=== PATIENT | male | born 1960 | race African-American/Black ===

== ENCOUNTER 2018-09-13 09:54 | Observation (INO) | payer OTHER ==
[~2018-09-13] VITALS: Ht 180.3 cm; Wt 58.9 kg
[2018-09-13] VITALS (20 sets, daily range): BP systolic 97–151; BP diastolic 49–87; PULSE 60–100; RESP 10–23; Ht 180.3 cm; Wt 58.9 kg
[~2018-09-13 09:54] MED LIST: CIPROFLOXACIN 400 MG in D5W 200 ML IVPB SCH
[2018-09-13] MEDS ORDERED: TAMS0.4C2 PO (10:25)
[2018-09-13] MEDS ORDERED: FINA5TAB4 PO (10:25)
[2018-09-13] MEDS ORDERED: GABA-526 PO (10:26)
[2018-09-13] MEDS ORDERED: MIDAZOLAM 1 MG/ML 2 ML INJ ONE (12:51)
[2018-09-13] MEDS ORDERED: PROPOFOL 20 ML ONE (12:51)
[2018-09-13] MEDS ORDERED: FENTAnyl 50 MCG/ML VIAL ONE (12:51)
--- NOTE | 2018-09-13 13:07 | HPN ---
Date/Time of Note Date/Time of Note DATE: 09/13/18 TIME: 13:07 Interval H&P Admission Note Pt. seen H&P reviewed: No system changes WENDIE SARAVIA Sep 13, 2018 13:07
--- NOTE | 2018-09-13 13:12 | PREAC ---
Date/Time of Note Date/Time of Note DATE: 09/13/18 TIME: 13:08 Anesthesia Eval and Record Evaluation Time Pre-Procedure Interview DATE: 09/13/18 TIME: 13:08 Age 58 Sex male NPO: 8 hrs Preoperative diagnosis urinary retention Planned procedure cysto;TURP Past Medical History Past Medical History: Includes (BPH, chronic back pain) Surgery & Anesthesia Issues No known issue Meds Anticoagulation: No Beta Ugo within 24 hr: No Reason Beta Ugo not given: Pt. not on B-Ugo Reported Medications Gabapentin* (Gabapentin*) 600 Mg Tablet, 600 MG PO TID, #90 TAB 09/13/18 Finasteride* (Finasteride*) 5 Mg Tablet, 5 MG PO DAILY, TAB 09/13/18 Tamsulosin Hcl* (Tamsulosin Hcl*) 0.4 Mg Cap.er.24h, 0.4 MG PO HS, CAP 09/13/18 Current Medications Ciprofloxacin/ Dextrose 200 ml @ 200 mls/hr PREOP IVPB ; Start 09/13/18 at 06:00; Stop 09/13/18 at 19:00 Influenza Virus Vaccine Quadrival (Fluzone) 0.5 ml ONCE ONCE IM* ; Start 09/15/18 at 13:00; Stop 09/15/18 at 13:01 Meds reviewed: Yes Allergies Coded Allergies: No Known Allergy (Unverified , 09/13/18) Allergies Reviewed: Yes Labs/Studies Labs Reviewed: Reviewed by anesthesiologist test: N/A Studies: ECG (nsr w/ SA), CXR (no active disease) Pre-procedure Exam Last vitals Vital Signs Date Temp Pulse Resp B/P (MAP) Pulse Ox O2 O2 Flow FiO2 Time Delivery Rate 09/13/18 97.5 60 16 120/58 100 10:46 (78) Airway: Adequate mouth opening, Adequate thyromental dist Mallampati: Mallampati II Teeth: Normal Lung: Normal Heart: Normal ASA Physical Status ASA physical status: 2 Emergency: None Planned Anesthetic General/MAC: ETT (to the discretion of the anesthesiologist), LMA Pre-operative Attestations Prior to commencing anesthesia and surgery, the patient was re-evaluated, there was verification of: *The patient's identity *The results of appropriate recent lab work and preoperative vital signs *The above evaluation not changing prior to induction *Anesthetic plan, risk benefits, alternative and complications discussed with patient/family; questions answered; patient/family understands, accepts and wishes to proceed. JAMEY SHIRLEY Sep 13, 2018 13:12
[2018-09-13] MEDS ORDERED: KETOROLAC 30 MG INJ ONE (13:48)
[2018-09-13] MEDS ORDERED: DEXAMETHASONE 4 MG/ML 5 ML INJ ONE (13:48)
[2018-09-13] MEDS ORDERED: ONDANSETRON 4 MG INJ ONE (13:48)
[2018-09-13] MEDS ORDERED: METOCLOPRAMIDE 10 MG INJ ONE (13:48)
[2018-09-13] MEDS ORDERED: ROCURONIUM 50 MG INJ ONE (13:48)
[2018-09-13] MEDS ORDERED: EPHEDrine SULFATE 50 MG/5 ML SYG IV PRN (14:00)
[2018-09-13] MEDS ORDERED: LABETALOL HCL 20MG INJ IV PRN (14:00)
[2018-09-13] MEDS ORDERED: FENTAnyl 50 MCG/ML VIAL IV PRN ×3 (14:00)
[2018-09-13] MEDS ORDERED: HYDROmorphONE 1 MG/5 ML IV SYRINGE IV PRN ×3 (14:00)
[2018-09-13] MEDS ORDERED: DIPHENHYDRAMINE 50 MG INJ IV PRN (14:00)
[2018-09-13] MEDS ORDERED: METOCLOPRAMIDE 10 MG INJ IV PRN (14:00)
[2018-09-13] MEDS ORDERED: hydrALAzine 20 MG INJ IV PRN (14:00)
[2018-09-13] MEDS ORDERED: ONDANSETRON 4 MG INJ IV PRN (14:00)
[2018-09-13] MEDS ORDERED: OXYCODONE/ACETAMINOPHEN (5/325) TAB PO PRN (14:00)
[2018-09-13] MEDS ORDERED: MEPERIDINE 25 MG INJ IV PRN (14:00)
[2018-09-13] MEDS ORDERED: GLYCOPYRROLATE 0.4 MG INJ ONE (14:24)
[2018-09-13] MEDS ORDERED: NEOSTIGMINE 3 MG/3 ML SYRINGE ONE (14:24)
--- NOTE | 2018-09-13 14:38 | PAC ---
Date/Time of Note Date/Time of Note DATE: 09/13/18 TIME: 14:37 Post-Anesthesia Notes Post-Anesthesia Note Last documented vital signs Vital Signs Date Temp Pulse Resp B/P (MAP) Pulse Ox O2 O2 Flow FiO2 Time Delivery Rate 09/13/18 98.5 60 16 120/58 100 face mask 8 L 14:46 (78) Activity: WNL Respiratory function: WNL Cardiovascular function: WNL Mental status: Baseline Pain reasonably controlled: Yes Hydration appropriate: Yes Nausea/Vomiting absent: Yes IBAN TALAVERA MD Sep 13, 2018 14:38
--- NOTE | 2018-09-13 14:43 | OPR ---
Date/Time of Note Date/Time of Note DATE: 09/13/18 TIME: 14:41 Operative Report Procedure Date: Sep 13, 2018 Preoperative Diagnosis Urinary retention Postoperative Diagnosis same Operation/Procedure Performed TURP Surgeon Jessica Carbon Lamp Cleaner none Anesthesia Type: general Anesthesiologist: IBAN TALAVERA MD Estimated Blood Loss: 0 - 10 ml's Transfusion none Specimen prostate chips Grafts/Implants none Tubes/Drains [address] Complications none Pt Condition Post Procedure: stable Disposition: PACU Indications retention Procedure Description dict [id number] WENDIE SARAVIA Sep 13, 2018 14:43
[2018-09-13] MEDS ORDERED: BELLADONNA ALK/OPIUM SUPP PR PRN (15:00)
[2018-09-13] MEDS ORDERED: morphine 2 MG INJ IV PRN (15:00)
[2018-09-13] MEDS ORDERED: MAGNESIUM HYDROXIDE 30ML CUP PO PRN (15:00)
[2018-09-13] MEDS ORDERED: HYDROCODONE/APAP (5/325) TAB PO PRN (15:00)
[2018-09-13] MEDS: DEXTROSE 5%-0.45% NACL 1,000 ML IV SCH ×2 (15:52→20:42)
[2018-09-13] MEDS: CIPROFLOXACIN 500 MG TAB PO SCH (17:51)
--- NOTE | 2018-09-13 18:58 | OPR ---
DATE OF OPERATION: PREOPERATIVE DIAGNOSIS: Urinary retention. POSTOPERATIVE DIAGNOSIS: Urinary retention. PROCEDURE: Cystoscopy, transurethral resection of prostate. SURGEON: Wendie Saravia MD ANESTHESIA: General. COMPLICATIONS: None. DRAINS: A 22-Romanian 3-way Rosenbaum catheter. SPECIMEN: Prostatic chips. DESCRIPTION OF PROCEDURE: The patient was brought into the operating room and placed on the [facility] room table in supine lithotomy position. He was prepped and draped in the usual fashion after anes thesia was induced. A timeout was undertaken. Appropriate pressure points were padded. He received preoperative antibiotic therapy and sequential compression devices were applied. The previously marvin jeronimo Rosenbaum catheter was removed. Rigid cystoscopy was undertaken with a 12-degree and 30-degree angle lens. No abnormalities of the anterior urethra could be appreciated. Poorly identified verumontanu m was noted. Obstructing lateral lobes of the prostate was noted as well as a very large median lobe that protrudes into the bladder causing an obstruction. This obscures the trigone as well as bilate ral ureteral orifices. There was marked trabeculation. A transurethral resection of the prostate wa s undertaken today with the bipolar resectoscope. First the median lobe was removed which was protru ding into the bladder. Then resection was undertaken from the 1 o'clock to the 5 o'clock position fr om the level of the bladder neck to the mid prostatic fossa and then from the 7 o'clock to the 11 o'c lock position. This was taken down to the surgical capsule. Pinpoint hemostasis was obtained. The anterior tissue was then resected into the mid prostatic fossa and then the lower half of the prostat ic fossa was resected down to the surgical capsule. The most apical portion of the tissue was preser manav. Pinpoint hemostasis was obtained. After the chips were removed with an [employer] evacuator, a 22-F rench 3-way Rosenbaum catheter was inserted with continuous bladder irrigation being initiated. Slow CBI demonstrated clear efflux of urine. He tolerated the procedure well and was transferred to the [facility] room in stable condition and will stay overnight on continuous bladder irrigation, hope for disc harge in morning time. No noted complications. Dictated By: WENDIE SARAVIA MD EGR/NTS Conf#: [id number] DID#: [id number]
[2018-09-13] MEDS: DOCUSATE SODIUM 100 MG CAP PO SCH (20:36)
[2018-09-13] MEDS: GABAPENTIN 300 MG CAP PO SCH (20:37)
[2018-09-13] MEDS: morphine 2 MG INJ IV PRN (20:37)
[2018-09-13] MEDS ORDERED: TAMSULOSIN (SR) 0.4 MG CAP PO SCH (21:00)
[2018-09-14] MEDS: morphine 2 MG INJ IV PRN ×3 (01:34→13:08)
[2018-09-14 01:45] VITALS: BP 125/68; PULSE 74; RESP 18
[2018-09-14] MEDS: CIPROFLOXACIN 500 MG TAB PO SCH (05:59)
[2018-09-14 08:00] VITALS: BP 123/61; PULSE 63; RESP 20
[2018-09-14] MEDS ORDERED: FINASTERIDE 5 MG TAB PO SCH (09:00)
[2018-09-14] MEDS: DOCUSATE SODIUM 100 MG CAP PO SCH (09:09)
[2018-09-14] MEDS: GABAPENTIN 300 MG CAP PO SCH ×2 (09:12→13:07)
--- NOTE | 2018-09-14 11:54 | PDOCDIS ---
Discharge Instructions DIAGNOSIS Discharge Diagnosis Urinary Retention CONDITION [id number] Patient Condition: Thea Good HOME CARE INSTRUCTIONS: Oscar Diet Instructions: Thea Reduced Sodium ACTIVITY: Oscar Activity Restrictions: Thea Avoid heavy lifting No Sexual Activity Oscar Bathing Restrictions: [id number] Shower FOLLOW UP/APPOINTMENTS Follow-up Plan Call office for date and time of removal of catheter. REFERRALS [id number] Referring Provider: WENDIE Rodriguez OTHER ORDERS: Other Orders: Rosenbaum to leg bag Do not lift more than 5 lbs Encourage hydration with water No sexual activity WENDIE SARAVIA Sep 14, 2018 11:54
[2018-09-14 14:00] VITALS: BP 118/64; PULSE 72; RESP 18
--- NOTE | 2018-09-14 16:37 | DS ---
DATE OF ADMISSION: 09/13/2018 DATE OF DISCHARGE: 09/14/2018 HISTORY OF PRESENT ILLNESS: Ron Steele is a 58-year-old male with urinary retention who presente d yesterday for cystoscopy and transurethral resection of the prostate which was uneventful. Postope ratively, his hemoglobin was 12.8. Of note, he has a low white blood count of 3.7 which was discusse d with the patient and he will follow up with his primary doctor as an outpatient. On the morning of postop day #1, he is doing well. He is eating solid foods without any noted difficulty and passing gas. The slow continuous bladder irrigation which was crystal clear was discontinued and the efflux of urine remained clear. PHYSICAL EXAMINATION: ABDOMEN: Soft, nondistended, nontender, no palpable masses. No CVA tenderness, no masses. GENITOURINARY: Rosenbaum is draining clear yellow urine. EXTREMITIES: No calf tenderness. Positive sequential compression devices. VITAL SIGNS: Blood pressure 123/61, heart rate 63, respiratory rate 20, temperature 98.6. IMPRESSION: Doing well status post TURP for urinary retention. PLAN: Discharged to home on Flomax 0.4 mg p.o. at bedtime. Continue gabapentin 600 mg p.o. t.i.d. Continue finasteride 5 mg p.o. daily. He will follow up in the office next week for a trial of void. Importance of light activity and no lifting more than 5 pounds. Encouraging fluids and direct pres sure on to the perineal region as well as hydration was discussed with the patient. All questions valdes ve been answered. Dictated By: WENDIE SANTANA/ALFA Conf#: [id number] DID#: [id number]
== END 2018-09-14 14:42 | disposition home or self-care (01) ==
LOC: SDS 09:54 → REC 15:06 → PP2 18:05
PROVIDERS: ADMIT Urology; ATTEND Urology
DX: R33.9 Retention of urine, unspecified (principal)
CPT/HCPCS: 52630; 85025; 88305; J0744; J1100; J1885; J2175; J2250; J2270; J2405; J2710; J2765; J3010; J7042; Z7500; Z7512; Z7610; 99217; G0378

== ENCOUNTER 2018-12-13 07:22 | Observation (INO) | payer OTHER ==
[2018-12-13] VITALS (28 sets, daily range): BP systolic 118–169; BP diastolic 61–106; PULSE 49–70; RESP 6–33; Ht 180.3 cm; Wt 67.7 kg
[~2018-12-13] VITALS: Ht 180.3 cm; Wt 67.7 kg
[~2018-12-13 07:22] MED LIST changes: +CIPROFLOXACIN 400 MG in D5W 200 ML IVPB ONE; -CIPROFLOXACIN 400 MG in D5W 200 ML IVPB SCH; +FINA5TAB4 PO; +GABA-526 PO; +TAMS0.4C2 PO
--- NOTE | 2018-12-13 08:56 | PREAC ---
Date/Time of Note Date/Time of Note DATE: 12/13/18 TIME: 08:55 Anesthesia Eval and Record Evaluation Time Pre-Procedure Interview DATE: 12/13/18 TIME: 08:55 Age 58 Sex male NPO: 8 hrs Preoperative diagnosis BPH Planned procedure Cystoscopy, TURP, insertion of suprapubic tube Past Medical History Past Medical History: Includes Recreational drugs: Marijuana Surgery & Anesthesia Issues No known issue Meds Anticoagulation: No Beta Ugo within 24 hr: No Reason Beta Ugo not given: Pt. not on B-Ugo Reported Medications Gabapentin* (Gabapentin*) 600 Mg Tablet, 600 MG PO TID, #90 TAB 09/13/18 Finasteride* (Finasteride*) 5 Mg Tablet, 5 MG PO DAILY, TAB 09/13/18 Tamsulosin Hcl* (Tamsulosin Hcl*) 0.4 Mg Cap.er.24h, 0.4 MG PO HS, CAP 09/13/18 Meds reviewed: Yes Allergies Coded Allergies: No Known Allergy (Unverified , 12/13/18) Allergies Reviewed: Yes Labs/Studies Labs Reviewed: Reviewed by anesthesiologist test: N/A Pre-procedure Exam Last vitals Vital Signs Date Temp Pulse Resp B/P (MAP) Pulse Ox O2 O2 Flow FiO2 Time Delivery Rate 12/13/18 97.7 55 16 131/63 100 Room Air 08:33 (85) Airway: Adequate mouth opening Mallampati: Mallampati I Teeth: Normal Lung: Normal Heart: Normal ASA Physical Status ASA physical status: 2 Emergency: None Planned Anesthetic General/MAC: ETT Planned Pain Management Parenteral pain med Pre-operative Attestations Prior to commencing anesthesia and surgery, the patient was re-evaluated, there was verification of: *The patient's identity *The results of appropriate recent lab work and preoperative vital signs *The above evaluation not changing prior to induction *Anesthetic plan, risk benefits, alternative and complications discussed with patient/family; questions answered; patient/family understands, accepts and wishes to proceed. JOSE R ESQUIVEL MD Dec 13, 2018 08:56
--- NOTE | 2018-12-13 08:58 | HPN ---
Date/Time of Note Date/Time of Note DATE: 12/13/18 TIME: 08:57 Interval H&P Admission Note Pt. seen H&P reviewed: No system changes WENDIE SARAVIA Dec 13, 2018 08:57
[2018-12-13] MEDS ORDERED: NEOSTIGMINE 3 MG/3 ML SYRINGE ONE (09:07)
[2018-12-13] MEDS ORDERED: LIDOCAINE 2% (SDV) 5 ML INJ ONE (09:07)
[2018-12-13] MEDS ORDERED: ROCURONIUM 50 MG INJ ONE (09:07)
[2018-12-13] MEDS ORDERED: PROPOFOL 20 ML ONE (09:07)
[2018-12-13] MEDS ORDERED: SUCCINYLCHOLINE CHLORIDE 100 MG/5 ML SYG IV ONE (09:07)
[2018-12-13] MEDS ORDERED: GLYCOPYRROLATE 0.4 MG INJ ONE ×2 (09:07→09:58)
[2018-12-13] MEDS ORDERED: ONDANSETRON 4 MG INJ ONE (09:25)
[2018-12-13] MEDS ORDERED: CIPROFLOXACIN 400MG/D5W 200 ML ONE (09:25)
[2018-12-13] MEDS ORDERED: METOCLOPRAMIDE 10 MG INJ IV PRN (09:30)
[2018-12-13] MEDS ORDERED: DIPHENHYDRAMINE 50 MG INJ IV PRN (09:30)
[2018-12-13] MEDS ORDERED: hydrALAzine 20 MG INJ IV PRN (09:30)
[2018-12-13] MEDS ORDERED: EPHEDrine 25 MG/5 ML SYG IV PRN (09:30)
[2018-12-13] MEDS ORDERED: LABETALOL HCL 20MG INJ IV PRN (09:30)
[2018-12-13] MEDS ORDERED: MEPERIDINE 25 MG INJ IV PRN (09:30)
[2018-12-13] MEDS ORDERED: ONDANSETRON 4 MG INJ IV PRN (09:30)
[2018-12-13] MEDS ORDERED: FENTAnyl 50 MCG/ML VIAL IV PRN ×3 (09:30)
[2018-12-13] MEDS ORDERED: HYDROmorphONE 1 MG/5 ML IV SYRINGE IV PRN ×3 (09:30)
[2018-12-13] MEDS ORDERED: MIDAZOLAM 1 MG/ML 2 ML INJ IV PRN (09:30)
[2018-12-13] MEDS ORDERED: BELLADONNA ALK/OPIUM SUPP PR ONE (10:00)
[2018-12-13] MEDS ORDERED: FINASTERIDE 5 MG TAB PO ONE (10:30)
[2018-12-13] MEDS ORDERED: BELLADONNA ALK/OPIUM SUPP PR PRN (10:30)
[2018-12-13] MEDS ORDERED: MAGNESIUM HYDROXIDE 30ML CUP PO PRN (10:30)
--- NOTE | 2018-12-13 10:33 | OPR ---
Date/Time of Note Date/Time of Note DATE: 12/13/18 TIME: 10:31 Operative Report Procedure Date: Dec 13, 2018 Preoperative Diagnosis Urinary retention Postoperative Diagnosis same Operation/Procedure Performed TURP, aspiration of bladder and insertion SPT Surgeon damari Sluice Tender none Anesthesia Type: general Anesthesiologist: JOSE R ESQUIVEL MD Estimated Blood Loss: 0 - 10 ml's Transfusion none Specimen prostate Grafts/Implants none Tubes/Drains [address] Rosenbaum Complications none Pt Condition Post Procedure: stable Disposition: PACU Indications retention Procedure Description dict [id number] WENDIE SARAVIA Dec 13, 2018 10:33
--- NOTE | 2018-12-13 11:28 | PAC ---
Date/Time of Note Date/Time of Note DATE: 12/13/18 TIME: 11:27 Post-Anesthesia Notes Post-Anesthesia Note Last documented vital signs Vital Signs Date Temp Pulse Resp B/P (MAP) Pulse Ox O2 O2 Flow FiO2 Time Delivery Rate 12/13/18 60 15 148/80 100 Nasal 3.0 10:52 (102) Cannula 12/13/18 98.9 10:23 Activity: WNL Respiratory function: WNL Cardiovascular function: WNL Mental status: Baseline Pain reasonably controlled: Yes Hydration appropriate: Yes Nausea/Vomiting absent: Yes Comments BT: 98.7 JOSE R ESQUIVEL MD Dec 13, 2018 11:28
[2018-12-13] MEDS: morphine 2 MG INJ IV PRN ×2 (13:38→22:04)
[2018-12-13] MEDS: DEXTROSE 5%-0.45% NACL 1,000 ML IV SCH (13:39)
[2018-12-13] MEDS: GABAPENTIN 300 MG CAP PO SCH ×2 (13:39→20:16)
[2018-12-13] MEDS: HYDROCODONE/APAP (5/325) TAB PO PRN ×2 (15:08→19:04)
--- NOTE | 2018-12-13 15:54 | OPR ---
DATE OF OPERATION: PREOPERATIVE DIAGNOSIS: Urinary retention. POSTOPERATIVE DIAGNOSIS: Urinary retention. OPERATION PERFORMED: Cystoscopy, transurethral resection of prostate, and insertion of suprapubic tu be and aspiration of bladder. SURGEON: Wendie Lopez MD ANESTHESIA: General. COMPLICATIONS: None. ESTIMATED BLOOD LOSS: Less than 50 mL. DRAINS: 22-Polish 3-way Rosenbaum catheter and 14-Polish suprapubic tube. SPECIMEN: Prostate. DESCRIPTION OF PROCEDURE: The patient was brought into the operating room and placed on the operatin g table in supine lithotomy position. He was prepped and draped in the usual fashion after anesthesi a was induced. A timeout was undertaken. Appropriate pressure points were padded. He received preo perative antibiotic therapy. Rigid cystoscopy was undertaken with a 12-degree and 30-degree angle le ns. No abnormalities of the anterior urethra could be appreciated. The dura verumontanum was identi fied and preserved throughout the entire case. Obstructing tissue was noted at the apex of the prost ate as well as redundant tissue on the left and right lateral lobe. The bladder was inspected in a s ystematic fashion. Bilateral ureteral orifices were within normal limits. No foreign body, bladder stone or tumor could be appreciated. A transurethral resection of the prostate with the obstructing tissue was undertaken today down to the level of the surgical capsule utilizing a bipolar Olympus res ectoscope. This allowed for removal of the obstructing apical tissue up to the level of verumontanum . At no time was any resection taken distal to the verumontanum and the verumontanum was well preser manav throughout the entire case. The redundant tissue on the left and lateral lobe were additionally excised down to the surgical capsule where pinpoint hemostasis was then obtained. With the resectosc ope at the level of the apex of the prostate, an open prostatic fossa was noted. There was no active bleeding. The bladder was instilled with fluid, which then corresponded with a distended palpable b ladder. Two cm above the pelvic brim in the midline in a sterile fashion, an 18-gauge spinal needle was used to aspirate the bladder endoscopically. This corresponded to the dome of the bladder and costa bsequently adjacent to this, a 14-Polish suprapubic tube was inserted directly into the bladder on first pass where efflux of clear fluid was noted consistent with endoscopic fluid from the cystosco pe/irrigation. The trocar was removed. Efflux of fluid was once again confirmed and the suprapubic tube was attached to the skin with 2-0 silk sutures. The suprapubic tube was then placed under a nneka rile dressing after it was clamped with the connector. A 3-way Rosenbaum catheter was then inserted with out any difficulty. A 22-Polish 3-way Rosenbaum catheter was inserted with the continuous bladder irriga tion being initiated. The efflux was noted to be crystal clear. He was transferred to recovery room in stable condition. PLAN: He will stay overnight for observation with discontinuation of CBI in the morning time and the n discharged to home and subsequent trial of void in the office. Further intervention evaluation pen jamar clinical course and results of above. Dictated By: WENDIE SANTANA/NTS Conf#: [id number] DID#: [id number]
[2018-12-13] MEDS: CIPROFLOXACIN 500 MG TAB PO SCH (20:15)
[2018-12-13] MEDS: DOCUSATE SODIUM 100 MG CAP PO SCH (20:16)
[2018-12-13] MEDS ORDERED: TAMSULOSIN (SR) 0.4 MG CAP PO SCH (21:00)
[2018-12-14 00:05] VITALS: BP 116/65; PULSE 52; RESP 16
[2018-12-14] MEDS: HYDROCODONE/APAP (5/325) TAB PO PRN (00:48)
[2018-12-14] MEDS: morphine 2 MG INJ IV PRN ×2 (04:42→11:04)
[2018-12-14] MEDS: DEXTROSE 5%-0.45% NACL 1,000 ML IV SCH ×2 (06:25→07:28)
[2018-12-14 07:21] VITALS: BP 129/73; PULSE 55; RESP 18
[2018-12-14] MEDS: CIPROFLOXACIN 500 MG TAB PO SCH (07:23)
--- NOTE | 2018-12-14 08:08 | PDOCDIS ---
Discharge Instructions DIAGNOSIS Discharge Diagnosis Urinary retention CONDITION Oscar Patient Condition: Thea Good HOME CARE INSTRUCTIONS: Oscar Diet Instructions: Thea Regular ACTIVITY: Oscar Activity Restrictions: Thea Avoid heavy lifting Oscar Bathing Restrictions: Thea Shower FOLLOW UP/APPOINTMENTS Follow-up Plan Follow up in office TuesdayDecember 25 at 8 am for removal fo Rosenbaum. REFERRALS Oscar Referring Provider: WENDIE Rodriguez EVAN Dec 14, 2018 08:08
[2018-12-14] MEDS: GABAPENTIN 300 MG CAP PO SCH (08:35)
[2018-12-14] MEDS: DOCUSATE SODIUM 100 MG CAP PO SCH (08:36)
--- NOTE | 2018-12-14 09:15 | DS ---
DATE OF ADMISSION: 12/13/2018 DATE OF DISCHARGE: 12/14/2018 HOSPITAL COURSE: Patient is status post TURP and insertion of suprapubic tube yesterday. He had an uneventful night. He is eating well. There is no nausea, vomiting. VITAL SIGNS: Stable, afebrile. ABDOMEN: Soft, nondistended, nontender. No palpable masses. BACK: No CVA tenderness. No masses. Slow CBI with crystal clear efflux, no noted blood or clots. CBI discontinued Rosenbaum catheter, left to gravity drainage. Suprapubic tube under clean dressing and is clamped. IMPRESSION: Urinary retention. PLAN: Discharge to home on Jose, Proscar and Flomax, [place] 5/325 one tab p.o. q.6 hours p.r.n., disp ense #30, no refill. Follow up in the office on 12/25/2018 at 8 a.m. for removal of Rosenbaum catheter. We will maintain supr apubic tube. The patient to be discharged to home with a connector. All questions answered. Dictated By: WENDIE SANTANA/NTS Conf#: [id number] DID#: [id number]
== END 2018-12-14 11:55 | disposition home or self-care (01) ==
LOC: SDS 07:22 → REC 10:25 → MS1 13:09
PROVIDERS: ADMIT Urology; ATTEND Urology
DX: N40.1 Benign prostatic hyperplasia with lower urinary tract symptoms (principal); R33.8 Other retention of urine
CPT/HCPCS: 51102; 52601; 88305; J0744; J2270; J2405; J2710; J7042; Z7500; Z7512; Z7610; G0378